=== PATIENT | female | born 1950 | race Caucasian/White ===

== ENCOUNTER 2018-04-20 15:18 | Day surgery (SDC) | payer MEDICARE, OTHER ==
[2018-04-15 09:51] LABS: BASOPHILS # (AUTO) 0.1 X10'3 (0-0.2); BASOPHILS % (AUTO) 0.6 % (0-1); EOSINOPHILS # (AUTO) 0.3 X10'3 (0-0.9); EOSINOPHILS % (AUTO) 3.2 % (0-6); HEMATOCRIT 35.5 % (35.0-45.0); HEMOGLOBIN 11.8 g/dl (12.0-16.0); LYMPHOCYTES # (AUTO) 2.2 X10'3 (1.1-4.8); LYMPHOCYTES % (AUTO) 26.1 % (21-51); MEAN CORPUSCULAR HEMOGLOBIN 31.3 PG (27.0-31.0); MEAN CORPUSCULAR HGB CONC 33.2 % (33.0-36.5); MEAN CORPUSCULAR VOLUME 94.1 FL (78-98); MEAN PLATELET VOLUME 9.1 FL (7.4-10.4); MONOCYTES # (AUTO) 0.5 X10'3 (0-0.9); MONOCYTES % (AUTO) 6.4 % (2-12); NEUTROPHILS # (AUTO) 5.4 X10'3 (1.8-7.7); NEUTROPHILS % (AUTO) 63.7 % (42-75); PLATELET COUNT 327 X10'3 (140-440); RED BLOOD COUNT 3.77 X10'6 (4.20-5.60); RED CELL DISTRIBUTION WIDTH 16.5 % (11.5-14.5); WHITE BLOOD COUNT 8.4 X10'3 (4.5-11.0)
[2018-04-15 09:57] LABS: ALBUMIN 3.5 G/DL (3.4-5.0); ANION GAP 11 (8-16); BLOOD UREA NITROGEN 32 MG/DL (7-18); BUN/CREATININE RATIO 17.8 (6.6-38.0); CALCIUM 9.2 MG/DL (8.5-10.1); CHLORIDE 104 MMOL/L (99-107); GLUCOSE 108 MG/DL (70-104); POTASSIUM 3.8 MMOL/L (3.5-5.1); SODIUM 139 MMOL/L (135-145); eGFR 28 ML/MIN
[2018-04-15 10:08] LABS: PARTIAL THROMBOPLASTIN TIME 30 SECONDS (22-32); PROTHROMBIN TIME 10.3 SECONDS (9.0-12.0)
[~2018-04-20] VITALS: Ht 162.6 cm; Wt 95.1 kg
[2018-04-20] VITALS (17 sets, daily range): BP systolic 74–124; BP diastolic 28–89
[~2018-04-20 15:18] MED LIST: ABAC1TAB2 PO; ACET-1015; AMLO5TAB PO; ASPI81TA47 PO; ATAZ300C PO; ATOR40TA PO; BECL7.3A7; BUPR150T8 PO; CLIN300C53 PO; FLUC100T9; FURO-149 PO; HONE15GE; HYDR-4353 PO; LISI2.5T2 PO; NORT10CA2 PO; RITO100T PO; ZOLP10TA5 PO
[2018-04-20] MEDS ORDERED: fentaNYL/PF 50MCG/1 ML 2ML syringe IV ONE (15:45)
[2018-04-20] MEDS ORDERED: MIDAZolam 5mg/ml 2ml vial IV ONE (15:45)
[2018-04-20] MEDS ORDERED: normal saline 1000ml 1,000 ML IV SCH (15:45)
[2018-04-20] MEDS ORDERED: METO50TA17 PO (17:05)
[2018-04-20] MEDS ORDERED: ZOLP5TAB2 PO (17:05)
[2018-04-20] MEDS ORDERED: OMEP40CA37 PO (17:05)
[2018-04-20] MEDS ORDERED: DABI75CA3 PO (17:05)
[2018-04-20] MEDS ORDERED: CITA-278 PO (17:05)
[2018-04-20] MEDS ORDERED: ALBU18HF2 INH (17:05)
[2018-04-20] MEDS ORDERED: SYN0.088T PO (17:05)
[2018-04-20] MEDS ORDERED: ABAC1TAB14 PO (17:05)
[2018-04-20] MEDS ORDERED: LISI-600 PO (17:05)
[2018-04-20] MEDS ORDERED: ERGO500041 PO (17:05)
== END 2018-04-20 20:15 | disposition home or self-care (01) ==
LOC: SSTAY O 15:18
PROVIDERS: ATTEND Internal Medicine Interventional Cardiology
DX: I48.91 Unspecified atrial fibrillation (principal); I08.0 Rheumatic disorders of both mitral and aortic valves; I25.10 Atherosclerotic heart disease of native coronary artery without angina pectoris; G47.33 Obstructive sleep apnea (adult) (pediatric); I25.2 Old myocardial infarction; I65.23 Occlusion and stenosis of bilateral carotid arteries; I12.9 Hypertensive chronic kidney disease with stage 1 through stage 4 chronic kidney disease, or unspecified chronic kidney disease; N18.3 Chronic kidney disease, stage 3 (moderate); I45.81 Long QT syndrome; J44.9 Chronic obstructive pulmonary disease, unspecified; M19.90 Unspecified osteoarthritis, unspecified site; E89.0 Postprocedural hypothyroidism; F19.21 Other psychoactive substance dependence, in remission; I70.213 Atherosclerosis of native arteries of extremities with intermittent claudication, bilateral legs; Z95.5 Presence of coronary angioplasty implant and graft; Z86.79 Personal history of other diseases of the circulatory system; Z99.81 Dependence on supplemental oxygen; Z87.19 Personal history of other diseases of the digestive system; Z88.5 Allergy status to narcotic agent; Z88.2 Allergy status to sulfonamides; Z86.73 Personal history of transient ischemic attack (TIA), and cerebral infarction without residual deficits; Z87.891 Personal history of nicotine dependence; Z87.01 Personal history of pneumonia (recurrent); Z90.49 Acquired absence of other specified parts of digestive tract; Z85.41 Personal history of malignant neoplasm of cervix uteri; Z79.891 Long term (current) use of opiate analgesic; Z98.890 Other specified postprocedural states; Z79.899 Other long term (current) drug therapy
CPT/HCPCS: 36415; 80048; 85025; 85610; 85730; 92960; 93005; 93312; J2250; J3010

== ENCOUNTER 2018-07-01 09:28 | Inpatient (IN) | payer MEDICARE, OTHER | END 2018-07-04 11:15 | disposition home or self-care (01) | LOC: ER 09:28 → PCU 3S 07-02 06:58 → ED HOLD 12:39 | DX: I50.23 Acute on chronic systolic (congestive) heart failure (principal); J96.90 Respiratory failure, unspecified, unspecified whether with hypoxia or hypercapnia; K27.4 Chronic or unspecified peptic ulcer, site unspecified, with hemorrhage; J44.1 Chronic obstructive pulmonary disease with (acute) exacerbation ==